=== PATIENT | male | born 1960 | race Caucasian/White ===

== ENCOUNTER 2019-10-02 05:39 | Emergency (ER) | payer BC ==
[2019-10-02] MEDS ORDERED: predniSONE 10 MG Tab PO ONE (05:57)
[2019-10-02] MEDS ORDERED: Albuterol/Ipratropium 3.0-0.5 MG/3 ML Neb Soln NEB ONE (05:57)
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
--- NOTE | 2019-10-02 06:38 | CR ---
INDICATION: Cough TECHNIQUE: Chest 2 views. COMPARISON: None FINDINGS: Cardiovascular and mediastinum: Heart size and vasculature are normal in caliber and appearance. Mediastinum is within normal limits. Lungs and pleural spaces: Lungs are clear. No sign of infiltrate or mass. No sign of pleural effusion. No pneumothorax. Bones and soft tissues: No significant findings. IMPRESSION: No sign of acute disease. Dictated by Jessy Kaufman MD @ Oct 02 2019 6:35AM Signed by Dr. Jessy Kaufman @ Oct 02 2019 6:36AM
== END 2019-10-02 06:54 | disposition home or self-care (01) ==
LOC: MW.ED 05:39
DX: J44.1 Chronic obstructive pulmonary disease with (acute) exacerbation (principal); J06.9 Acute upper respiratory infection, unspecified; F17.200 Nicotine dependence, unspecified, uncomplicated; Z88.0 Allergy status to penicillin; Z79.52 Long term (current) use of systemic steroids
CPT/HCPCS: 71046; 87081; 87804; 87880; 94640; 99285; A9270; J7620-GY

== ENCOUNTER 2021-09-02 07:03 | Emergency (ER) | payer BC ==
[2021-09-02] MEDS ORDERED: Acetaminophen 500 MG Tab PO ONE (07:39)
[2021-09-02] MEDS ORDERED: Albuterol/Ipratropium 3.0-0.5 MG/3 ML Neb Soln NEB ONE (07:40)
--- NOTE | 2021-09-02 07:43 | PCM.EKG ---
#1 Interpretation EKG Date: 09/02/21 Time: 07:10 Rhythm: NSR Rate (Beats/Min): 55 [place]: Normal P-Wave: Present QRS: Normal ST-T: Normal QT: Normal Comparison: NA - No Prior EKG EKG Interpretation Comments: Sinus Rhythm
[2021-09-02 08:05] LABS: BLOOD UREA NITROGEN,BUN 19 mg/dL (7.0-18.0); CHLORIDE,CL 107 mmol/L (98-107); GLUCOSE RANDOM 89 mg/dL (74-106); POTASSIUM,K 4.4 mmol/L (3.5-5.1); SODIUM,NA 143 mmol/L (136-148)
--- NOTE | 2021-09-02 08:05 | CR ---
Indication: Shortness of breath. Technique: AP portable view of the chest. Comparison: October 02, 2019. Findings: The heart is normal in size. The lungs are clear. No infiltrate, pleural effusion, or pneumothorax is identified. Impression: No acute cardiopulmonary process Dictated by Alvina Dunbar MD @ 09/02/2021 8:04:20 AM (Electronically Signed)
[2021-09-02 08:19] LABS: CORONAVIRUS COVID-19 NAA NEGATIVE (NEGATIVE); INFLUENZA A NAA NEGATIVE (NEGATIVE); INFLUENZA B NAA NEGATIVE (NEGATIVE)
[2021-09-02] MEDS ORDERED: predniSONE 20 MG Tab PO ONE (09:54)
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
== END 2021-09-02 10:25 | disposition home or self-care (01) ==
LOC: MW.ED 07:03
DX: J44.1 Chronic obstructive pulmonary disease with (acute) exacerbation (principal); J06.9 Acute upper respiratory infection, unspecified; Z88.0 Allergy status to penicillin; Z20.822 Contact with and (suspected) exposure to COVID-19
CPT/HCPCS: 0240U; 36415; 71045; 80053; 83735; 84484; 85025; 93005; 99285; A9270; J7620-GY